=== PATIENT | male | born 1970 | race African-American/Black ===

== ENCOUNTER 2018-04-03 17:52 | Emergency (ER) | payer OTHER ==
[~2018-04-03] VITALS: Ht 165.1 cm; Wt 79.4 kg
[2018-04-03 17:52] VITALS: BP 160/97
[2018-04-03] MEDS ORDERED: LIDOCAINE 1% INJ 50 ML MDV IJ ONE ×2 (18:30)
[2018-04-03] MEDS ORDERED: TDAP [DIPH/PERTUSSIS/TET] 0.5 ML VIAL IM ONE ×2 (18:30)
[2018-04-03] MEDS ORDERED: IBUPROFEN 600 MG TABLET PO ONE ×2 (19:30)
== END 2018-04-03 19:44 | disposition home or self-care (01) ==
LOC: ER 17:58
DX: S61.211A Laceration without foreign body of left index finger without damage to nail, initial encounter (principal); Z23 Encounter for immunization; W26.0XXA Contact with knife, initial encounter; Y93.89 Activity, other specified; Y92.89 Other specified places as the place of occurrence of the external cause; Y99.0 Civilian activity done for income or pay
CPT/HCPCS: 12002; 90471; 90715; 99283; A4606; A6402 ×2; J3490; Z7610

== ENCOUNTER 2018-04-15 13:29 | Emergency (ER) | payer OTHER ==
[~2018-04-15] VITALS: Ht 165.1 cm; Wt 68.0 kg
[2018-04-15 13:29] VITALS: BP 135/86
== END 2018-04-15 13:56 | disposition home or self-care (01) ==
LOC: ER 13:30
DX: S61.211D Laceration without foreign body of left index finger without damage to nail, subsequent encounter (principal); X58.XXXD Exposure to other specified factors, subsequent encounter
CPT/HCPCS: Z7502